=== PATIENT | male | born 1985 | race Native Hawaiian/Other Pacific Islander ===

== ENCOUNTER 2017-04-23 23:01 | Emergency (ER) | payer OTHER ==
[~2017-04-23] VITALS: Ht 188 cm; Wt 170.0 kg
[~2017-04-23 23:01] MED LIST: DIPH2%T PO; TRIA.1%T EXT
[2017-04-23 23:05] VITALS: BP 176/112; PULSE 83; RESP 16; TEMP 98.6; O2SAT 97
[2017-04-24] MEDS ORDERED: COLC1CAP3 PO (01:36)
[2017-04-24] MEDS ORDERED: INDO50CA PO (01:36)
--- NOTE | 2017-04-24 01:37 | PD ---
HPI Chief Complaint: Injury Time Seen by Provider: 01:30 Travel History International Travel<30 days: No Contact w/Intl Traveler<30days: No Traveled to known affect area: No History of Present Illness HPI Patient is a 31-year-old male presenting to emergency for evaluation of right first toe pain. Patient states it's been going on for 3 days. He reports a history of gout and states the symptoms are the same. The pain is localized to the MCP joint. He reports swelling and mild erythema. Patient speaks mostly airbags, he does understand some [place]o and he is accompanied by a friend who has an translating for him. They declined formal interpretation services. [facility] Past Medical History Diminished Hearing: No Gout: Yes Reproductive: Yes (prostate) Tetanus Vaccination: Unknown Past Surgical History Surgical History: No Previous Surgery Social History Alcohol Use: No Tobacco Use: No Allergies-Medications (Allergen,Severity, Reaction): Coded Allergies: No Known Allergies (Unverified , 04/12/16) Reported Meds & Prescriptions Reported Meds & Active Scripts Active Benadryl (Diphenhydramine HCl) 25 Mg Cap 25 Mg PO Q6H PRN 7 Days Kenalog (Triamcinolone) 0.1 % Cre 0.1 % EXT BID 7 Days Review of Systems Except as stated in HPI: all other systems reviewed are Neg Musculoskeletal: Positive: Arthralgias, Edema, Pain Skin: Positive Change in Pigmentation Physical Exam Narrative GENERAL: Well-nourished, well-developed patient. SKIN: Focused skin assessment warm/dry. HEAD: Normocephalic. EYES: No scleral icterus. No injection or drainage. NECK: Supple, trachea midline. No JVD or lymphadenopathy. CARDIOVASCULAR: Regular rate and rhythm without murmurs, gallops, or rubs. RESPIRATORY: Breath sounds equal bilaterally. No accessory muscle use. GASTROINTESTINAL: Abdomen soft, non-tender, nondistended. MUSCULOSKELETAL: No cyanosis, mild edema noted over the first MTP joint on the left foot, mild erythema, mildly tender to palpation. Patient is neurovascularly intact with positive pedal pulses and brisk less than 3 second capillary refill. BACK: Nontender without obvious deformity. No CVA tenderness. Data Data Last Documented VS Vital Signs Date Time Temp Pulse Resp B/P Pulse Ox O2 Delivery O2 Flow Rate FiO2 04/23/17 23:05 98.6 83 16 176/112 97 MDM Medical Decision Making Medical Screen Exam Complete: Yes Emergency Medical Condition: Yes Interpretation(s) Vital Signs Date Time Temp Pulse Resp B/P Pulse Ox O2 Delivery O2 Flow Rate FiO2 04/23/17 23:05 98.6 83 16 176/112 97 Differential Diagnosis Arthritis versus gout versus cellulitis versus abscess versus other Narrative Course Patient is a 31-year-old male presenting with 3 days of right first MTP pain and swelling. He has a history of gout, he states his symptoms are the same. Patient has a local primary care provider. He will be provided with a prescription for indomethacin and colchicine. He is advised to follow-up with his primary doctor the next 1-2 days. He is encouraged to return to emergency department for any new or worsening symptoms. Patient verbalized understanding of these instructions. Patient is stable for discharge. Diagnosis Primary Impression: Gouty arthropathy Additional Impression: Elevated blood pressure reading Referrals: Primary Care Physician Patient Instructions: General Instructions, Gout (ED) Additional Instructions: Follow-up with your primary doctor in 1-2 days Take medications as directed Increased fluid intake Your blood pressure was elevated in the emergency department today, please follow-up with your primary doctor for further evaluation and management Return to emergency department immediately for any new or worsening symptoms Med/Other Pt SpecificInfo: Prescription(s) given Scripts Colchicine 0.6 Mg Cap0.6 Mg PO BID #3 CAP Ref 0 TAKE 2 CAPSULES BY MOUTH X 1 DOSE, THEN 1 HOUR LATER TAKE 1 ADDITONAL CAPSULE BY MOUTH. Prov:Alanis Stewart 04/24/17 Indomethacin 50 Mg Cap50 Mg PO TID PRN (PAIN SCALE 1 TO 10) 7 Days Ref 0 Take with food, milk, or antacids to decrease stomach adverse effects. Prov:Alanis Stewart 04/24/17 Disposition: 01 DISCHARGE HOME Condition: Stable Alanis Stewart Apr 24, 2017 01:36
== END 2017-04-24 02:31 | disposition home or self-care (01) ==
LOC: NEPK 23:01
DX: M10.9 Gout, unspecified (principal); R03.0 Elevated blood-pressure reading, without diagnosis of hypertension
CPT/HCPCS: 99284

== ENCOUNTER → 2017-04-29 | Outpatient (CLI) | payer OTHER ==
[~2017-04-29] MED LIST changes: +COLC1CAP3 PO; +INDO50CA PO
[2017-04-30 15:04] LABS: ACROSOM DEFECT 29.5 % (()); DOUBLE FORM 1.5 % (()); GRADE 2.5 (>=2.5); HEAD SHAPE ABNORMAL 4.5 % (()); MOTILE/EJACULATE 9.6 x10(6) (>=9.0); MOTILE/mL 2.4 x10(6) (>=6.0); MOTILITY 22 % (>=40); SEMEN CONTAINER TYPE 50 mL Conical (()); STUDY TYPE Semen (()); SUPRAVITAL STAIN 45 % live (>=58); TAIL ABNORMAL 41.5 % (())
== END ==
LOC: CLAB 13:11
PROVIDERS: ATTEND Urology
DX: Z31.41 Encounter for fertility testing (principal)
CPT/HCPCS: 89310